=== PATIENT | male | born 1990 ===

== ENCOUNTER 2018-06-26 12:38 | Emergency (ER) | payer OTHER ==
--- NOTE | 2018-06-26 14:54 | EDPHYS ---
Physician Documentation [facility] Name: Jorje Calero Age: 28 yrs Sex: Male : 1990 Arrival Date: 06/26/2018 Time: 12:45 Bed 11 Private MD: None, None ED Physician Simon Pabon HPI: 06/26 15:34 This 28 yrs old Unknown Male presents to ER via Ambulatory with complaints of Rash. snw 15:34 The patient's rash thought to be caused by Psoriasis. The rash is located on the snw bilateral wrists, right ac, and right lateral neck. The rash can be described as silvery dry skin with pruritis and scaling. Associated signs and symptoms: Pertinent positives: burning sensation, itching. Treatment given at home: none. The patient has not experienced similar symptoms in the past. It is unknown whether or not the patient has recently seen a physician. Historical: - Allergies: 12:54 No Known Allergies; sv - PMHx: 12:54 None; sv - PSHx: 12:54 None; sv - Immunization history:: Adult Immunizations not up to date. - Social history:: Smoking status: Patient uses tobacco products, smokes one-half pack cigarettes per day. - Ebola Screening: : No symptoms or risks identified at this time. ROS: 15:33 Constitutional: Negative for fever, chills, and weight loss, Eyes: Negative for injury, snw pain, redness, and discharge, ENT: Negative for injury, pain, and discharge, Neck: Negative for injury, pain, and swelling, Cardiovascular: Negative for chest pain, palpitations, and edema, Respiratory: Negative for shortness of breath, cough, wheezing, and pleuritic chest pain, Abdomen/GI: Negative for abdominal pain, nausea, vomiting, diarrhea, and constipation, Back: Negative for injury and pain, : Negative for injury, bleeding, discharge, and swelling, MS/Extremity: Negative for injury and deformity, Neuro: Negative for headache, weakness, numbness, tingling, and seizure. 15:33 Skin: Positive for rash. Exam: 15:33 Constitutional: This is a well developed, well nourished patient who is awake, alert, snw and in no acute distress. Head/Face: Normocephalic, atraumatic. Eyes: Pupils equal round and reactive to light, extra-ocular motions intact. Lids and lashes normal. Conjunctiva and sclera are non-icteric and not injected. Cornea within normal limits. Periorbital areas with no swelling, redness, or edema. ENT: Nares patent. No nasal discharge, no septal abnormalities noted. Tympanic membranes are normal and external auditory canals are clear. Oropharynx with no redness, swelling, or masses, exudates, or evidence of obstruction, uvula midline. Mucous membranes moist. Neck: Trachea midline, no thyromegaly or masses palpated, and no cervical lymphadenopathy. Supple, full range of motion without nuchal rigidity, or vertebral point tenderness. No Meningismus. Chest/axilla: Normal chest wall appearance and motion. Nontender with no deformity. No lesions are appreciated. Cardiovascular: Regular rate and rhythm with a normal S1 and S2. No gallops, murmurs, or rubs. Normal PMI, no JVD. No pulse deficits. Respiratory: Lungs have equal breath sounds bilaterally, clear to auscultation and percussion. No rales, rhonchi or wheezes noted. No increased work of breathing, no retractions or nasal flaring. Abdomen/GI: Soft, non-tender, with normal bowel sounds. No distension or tympany. No guarding or rebound. No evidence of tenderness throughout. Back: No spinal tenderness. No costovertebral tenderness. Full range of motion. MS/ Extremity: Pulses equal, no cyanosis. Neurovascular intact. Full, normal range of motion. Neuro: Awake and alert, GCS 15, oriented to person, place, time, and situation. Cranial nerves II-XII grossly intact. Motor strength 5/5 in all extremities. Sensory grossly intact. Cerebellar exam normal. Normal gait. Psych: Awake, alert, with orientation to person, place and time. Behavior, mood, and affect are within normal limits. 15:33 Skin: Appearance: normal except for affected area, psoriasis, on the left and right antecubital area and left and right wrist, right lateral neck. Vital Signs: 12:54 BP 116 / 64; Pulse 71; Resp 16; Temp 99; Pulse Ox 98% ; Weight 53 kg; Height 5 ft. 6 sv in. (167.64 cm); 12:54 Body Mass Index 18.86 (53.00 kg, 167.64 cm) sv MDM: 14:28 Patient medically screened. so 14:56 Data reviewed: vital signs, nurses notes. Data interpreted: Pulse oximetry: on room air snw is 98 %. Interpretation: normal. Counseling: I had a detailed discussion with the patient and/or guardian regarding: the historical points, exam findings, and any diagnostic results supporting the discharge/admit diagnosis, the need for outpatient follow up, for definitive care. Special discussion: Based on the history and exam findings, there is no indication for further emergent testing or inpatient evaluation. I discussed with the patient/guardian the need to see the welt slasher for further evaluation of the symptoms. I discussed with the patient/guardian the need to see the primary care provider for further evaluation of the symptoms. 06/26 14:58 Order name: [facility]. Order: A\T\D or Vaseline to areas of irritation; Complete Time: 15:17 snw Administered Medications: 15:00 Drug: predniSONE 20 mg Route: PO; rv 15:18 Follow up: Response: Medication administered at discharge. rv 15:00 Drug: Pepcid 20 mg Route: PO; rv 15:17 Follow up: Response: Medication administered at discharge. rv Disposition: 15:50 Co-signature as Attending Physician, Simon Pabon MD I agree with the assessment and [facility] plan of care. Disposition: 06/26/18 14:53 Discharged to Home. Impression: Psoriasis, unspecified. - Condition is Stable. - Discharge Instructions: Psoriasis. - Prescriptions for Prednisone 20 mg Oral Tablet - take 2 tablet by ORAL route once daily for 5 days; 10 tablet. - Medication Reconciliation Form, Thank You Letter, Antibiotic Education, Prescription Opioid Use form. - Follow up: Private Physician; When: 1 week; Reason: Recheck today's complaints, Continuance of care, Re-evaluation by your physician. Follow up: Emergency Department; When: As needed; Reason: Worsening of condition. - Notes: Please use Selsun blue shampoo on irritated areas 3 times weekly, coat area after drying with vaseline or other ointment. Signatures: Vida Wood, RN Simon Yang MD MD cha Therrien, Shelly, HATCH BOSS-C HATCH BOSS-Csnw Michael Maier RN RN rv Corrections: (The following items were deleted from the chart) 15:21 14:53 06/26/2018 14:53 Discharged to Home. Impression: Psoriasis, unspecified. rv Condition is Stable. Forms are Medication Reconciliation Form, Thank You Letter, Antibiotic Education, Prescription Opioid Use. Follow up: Private Physician; When: 1 week; Reason: Recheck today's complaints, Continuance of care, Re-evaluation by your physician. Follow up: Emergency Department; When: As needed; Reason: Worsening of condition. snw
--- NOTE | 2018-06-26 14:54 | ER ---
Nurse's Notes [facility] Name: Jorje Calero Age: 28 yrs Sex: Male : 1990 Arrival Date: 06/26/2018 Time: 12:45 Bed 11 Private MD: None, None Diagnosis: Psoriasis, unspecified Presentation: 06/26 12:53 Presenting complaint: Patient states: rash to right arm, neck, face started a couple of sv days ago. Was prescribed Hydrocortisone cream and Prednisone but has not improved. Transition of care: patient was not received from another setting of care. Onset: The symptoms/episode began/occurred 2 day(s) ago. Anaphylaxis evaluation, no signs or symptoms of anaphylaxis were noted. Onset of symptoms was June 2018. Care prior to arrival: None. 12:53 Method Of Arrival: Ambulatory sv 12:53 Acuity: LADY 4 sv 15:21 Risk Assessment: Do you want to hurt yourself or someone else? Patient reports no rv desire to harm self or others. Initial Sepsis Screen: Does the patient meet any 2 criteria? No. Patient's initial sepsis screen is negative. Does the patient have a suspected source of infection? No. Patient's initial sepsis screen is negative. Triage Assessment: 12:53 General: Appears in no apparent distress. uncomfortable, Behavior is calm, cooperative, sv appropriate for age. Pain: Denies pain. Neuro: Level of Consciousness is awake, alert, obeys commands, Oriented to person, place, time, situation, Moves all extremities. Full function. Respiratory: Respiratory effort is even, unlabored, Respiratory pattern is regular, symmetrical. Derm: Rash noted that is itchy, red, raised, on face and right arm and right back of neck. Historical: - Allergies: 12:54 No Known Allergies; sv - PMHx: 12:54 None; sv - PSHx: 12:54 None; sv - Immunization history:: Adult Immunizations not up to date. - Social history:: Smoking status: Patient uses tobacco products, smokes one-half pack cigarettes per day. - Ebola Screening: : No symptoms or risks identified at this time. Screenin:20 Abuse screen: Denies threats or abuse. Denies injuries from another. Nutritional rv screening: No deficits noted. Tuberculosis screening: No symptoms or risk factors identified. Fall Risk None identified. Assessment: 15:18 General: Appears in no apparent distress. comfortable, Behavior is calm, cooperative. rv Pain: Complains of pain in rashes: right wrist, right back side of the neck. Neuro: Level of Consciousness is awake, alert, obeys commands, Oriented to person, place, time, situation. Cardiovascular: Capillary refill < 3 seconds. Respiratory: Airway is patent Breath sounds are clear bilaterally. GI:. : No signs and/or symptoms were reported regarding the genitourinary system. EENT: No signs and/or symptoms were reported regarding the EENT system. Derm: Rash noted that is on right wirst, back of the neck, face. Musculoskeletal: No signs and/or symptoms reported regarding the musculoskeletal system. Vital Signs: 12:54 BP 116 / 64; Pulse 71; Resp 16; Temp 99; Pulse Ox 98% ; Weight 53 kg; Height 5 ft. 6 sv in. (167.64 cm); 12:54 Body Mass Index 18.86 (53.00 kg, 167.64 cm) sv ED Course: 12:45 Patient arrived in ED. dl4 12:46 None, None is Private Physician. dl4 12:54 Triage completed. sv 12:54 Arm band placed on. sv 13:49 Clementina Arechiga FNP-C is [facility]. snw 13:49 Simon Pabon MD is Attending Physician. snw 14:23 Sonia Burr, STACEY is Primary Nurse. iw 15:20 Patient has correct armband on for positive identification. Call light in reach. Pulse rv ox on. 15:20 No provider procedures requiring assistance completed. Patient did not have IV access rv during this emergency room visit. Administered Medications: 15:00 Drug: predniSONE 20 mg Route: PO; rv 15:18 Follow up: Response: Medication administered at discharge. rv 15:00 Drug: Pepcid 20 mg Route: PO; rv 15:17 Follow up: Response: Medication administered at discharge. rv Outcome: 14:53 Discharge ordered by . snw 15:20 Discharged to home ambulatory. rv 15:20 Condition: good 15:20 Discharge instructions given to patient, Instructed on discharge instructions, follow up and referral plans. medication usage, Demonstrated understanding of instructions, follow-up care, medications, Prescriptions given X 1. 15:21 Patient left the ED. rv Signatures: Vida Wood RN Clementina Turner, HEALTH AND SAFETY INSPECTOR-C HEALTH AND SAFETY INSPECTOR-Csnw Sonia Burr, RN Michael Daniel, RN Brady Calle dl4 Corrections: (The following items were deleted from the chart) 12:55 12:53 Presenting complaint: Patient states: rash to right arm, neck, face started a sv couple of days ago. sv
[2018-06-26] MEDS ORDERED: predniSONE 10 MG TAB ONE (15:14)
[2018-06-26] MEDS ORDERED: FAMOTIDINE 20 MG TAB ONE (15:14)
== END 2018-06-26 15:21 | disposition home or self-care (01) ==
LOC: ER 12:38
DX: L40.9 Psoriasis, unspecified (principal); F17.210 Nicotine dependence, cigarettes, uncomplicated; Z72.0 Tobacco use
CPT/HCPCS: J7512